=== PATIENT | female | born 1990 | race Caucasian/White ===

== ENCOUNTER 2017-03-16 13:53 | Emergency (ER) | payer BC, OTHER ==
[~2017-03-16] VITALS: Ht 180.3 cm; Wt 84.6 kg
[~2017-03-16 13:53] MED LIST: IBUP-1050 PO; MULT-506 PO; NORE1TAB99 PO
[2017-03-16 13:56] VITALS: TEMP 36.3; Ht 180.3 cm; Wt 84.6 kg
--- NOTE | 2017-03-16 14:41 | EMERGENCY ROOM VISIT NOTE ---
ED Visit Note First contact with patient: 14:06 CHIEF COMPLAINT: Hit in the right eye with a soccer ball 2 hours ago HISTORY OF PRESENT ILLNESS: Patient is an otherwise healthy 26-year-old white female who presents emergency department for evaluation of her right eye, after she was hit in the right side of the face while playing soccer about 2 hours ago. She took a direct blow to the right eye while playing indoor soccer. She states that she had to stop playing, and well sitting on the sidelines she noticed black spots through her vision, particularly in the lower lateral quadrant. There is no associated pain or foreign body sensation. No tearing or discharge. She notes some mild discomfort inferior to the right eye, no significant bruising or soft tissue swelling. She states that at about 10-15 minutes for the vision to clear, and she feels like she returned to her baseline. She reports that she is actually legally blind in the left eye, she wears glasses occasionally for driving, does not use any contact lenses. She called an advice nurse, and was referred to the emergency department due to the the temporary alteration in her vision. REVIEW OF SYSTEMS: Review of systems as per HPI. All other systems reviewed were negative. At least 6 systems reviewed. PMH: Electronic medical records are reviewed and summarized as above/below. See Problem List. SOCIAL HISTORY: Patient lives at home with a roommate. She is a student success coach. She does not smoke. PHYSICAL EXAM: Vital Signs: Reviewed Nurse's notes. CONSTITUTIONAL: Patient is a pleasant, well-appearing 26-year-old white female who is awake and alert and in no acute distress. VISUAL ACUITY: 20/20 in the right eye, 20/70 in the left eye without correction. EYE(S): Pupils are equal, round and reactive to light and accommodation, EOMs are full. There is no conjunctival injection, no subconjunctival hematoma noted. No drainage or discharge. Funduscopic exam does not reveal any obvious abnormality. Slit lamp exam did not demonstrate any hyphema. FACE: No significant soft tissue swelling or ecchymosis. Very minimal tenderness inferior to the right eye, no bony tenderness or step-off deformity appreciated. EMERGENCY DEPARTMENT COURSE: The patient was seen and examined as above. She had a temporary vision disturbance after being struck in the right eye with a soccer ball. She has a benign exam at this time and vision has returned to baseline. She does not have any findings consistent with a retinal detachment, no evidence for a traumatic iritis or hyphema. The patient was encouraged to follow up with her director financial planning if symptoms recur, otherwise can resume normal activity. Medication reconciliation: I attest that I have personally reviewed the patient' s current medication list. Blood pressure screening : Patient was found to have normal blood pressure on screening and does not require follow-up. Problem List Medical Problems: (1) Unspecified Asthma, Uncomplicated Status: Resolved Surgical Problems: (1) History of reconstruction of anterior cruciate ligament tear Status: Resolved Current/Historical Medications No Active Prescriptions or Reported Meds Allergies Coded Allergies: Keene (Unverified Allergy, Unknown, , 03/16/17) Clindamycin (Verified Allergy, Unknown, HIVES, 03/16/17) Vital Signs Date Time Temp Pulse Resp B/P (MAP) Pulse Ox O2 Delivery O2 Flow Rate FiO2 03/16/17 14:49 80 19 132/66 99 03/16/17 13:56 36.3 89 16 139/86 100 Room Air Departure Information Impression Primary Impression: Transient vision disturbance, right Prescriptions No Active Prescriptions or Reported Meds Referrals No Doctor, Assigned (PCP) Patient Instructions [facility] [employer] Additional Instructions Resume normal activity. Continue current medications. Follow-up with your eye doctor if your symptoms return. Return to the emergency department as needed.
[2017-03-16 14:49] VITALS: BP 132/66; PULSE 80; O2SAT 99
== END 2017-03-16 14:51 | disposition home or self-care (01) ==
LOC: C.EDB 13:56 → C.EDD 14:51
DX: H53.121 Transient visual loss, right eye (principal); W21.02XA Struck by soccer ball, initial encounter; Y93.66 Activity, soccer; J45.909 Unspecified asthma, uncomplicated